=== PATIENT | female | born 2000 | race Hispanic/Latino ===

== ENCOUNTER 2024-05-29 12:18 | Emergency (ER) | payer MEDICAID, OTHER ==
[~2024-05-29] VITALS: Ht 157.5 cm; Wt 83.9 kg
[2024-05-29 12:20] VITALS: BP 145/87; PULSE 145; RESP 20
[2024-05-29 13:13] LABS: SARS-CoV-2, RNA, NAAT POSITIVE SARS CoV-2 (NEGATIVE)
== END 2024-05-29 12:37 | disposition left against medical advice (07) ==
LOC: EDH 12:18
DX: R05.9 Cough, unspecified (principal); Z53.21 Procedure and treatment not carried out due to patient leaving prior to being seen by health care provider
CPT/HCPCS: 87635

== ENCOUNTER 2025-01-22 11:04 | Emergency (ER) | payer OTHER, MEDICAID ==
[~2025-01-22] VITALS: Ht 157.5 cm; Wt 98.0 kg
--- NOTE | 2025-01-22 11:15 | NUR ---
PT WAS JUST PLACED IN ED BED 6. DONNA VINSON IS PREPPING HER IN THE ROOM WE SPEAK.
[2025-01-22] MEDS ORDERED: dexaMETHasone ORAL SUSP 1 MG/ML 30ML BTL PO STA (11:34)
[2025-01-22] MEDS: LACTATED RINGERS 1000ML 1,000 ML IV ONE (12:00)
[2025-01-22 12:19] LABS: BASOPHILS # (AUTO) 0.04 K/uL (0.00-0.20); BASOPHILS % (AUTO) 0.3 % (0.0-5.0); EOSINOPHILS # (AUTO) 0.07 K/uL (0.00-0.70); EOSINOPHILS % (AUTO) 0.6 % (0.0-8.0); HEMATOCRIT 37.4 % (36-48); IMMATURE GRANULOCYTE ABSOLUTE 0.28 K/uL (0-1); LYMPHOCYTES # (AUTO) 2.7 K/uL (1.0-4.8); LYMPHOCYTES % (AUTO) 21.3 % (21.0-51.0); MEAN CORPUSCULAR HEMOGLOBIN 32.4 pg (27.0-33.0); MEAN CORPUSCULAR VOLUME 95.4 fL (79-99); MONOCYTES # (AUTO) 0.9 K/uL (0.1-1.0); MONOCYTES % (AUTO) 7.2 % (3.0-13.0); NEUTROPHILS # (AUTO) 8.7 K/uL (1.8-7.7); NEUTROPHILS % (AUTO) 68.4 % (40.0-77.0); PLATELET COUNT (AUTO) 269 K/uL (130-400); RED BLOOD CELL COUNT(AUTO) 3.92 MIL/uL (4.00-5.50); RED CELL DISTRIBUTION WIDTH 13.2 % (11.0-15.5); WHITE BLOOD COUNT (AUTO) 12.7 K/uL (4.8-10.8)
[2025-01-22 12:30] LABS: CREATININE 0.6 mg/dL (0.5-1.0); POTASSIUM 3.6 mmol/L (3.5-5.1)
[2025-01-22 12:34] LABS: BILIRUBIN,TOTAL 0.1 mg/dL (0.2-1.0); MAGNESIUM 1.6 mg/dL (1.80-2.40); TOTAL PROTEIN, SERUM 7.2 g/dL (6.0-8.3)
[2025-01-22] MEDS: MAG/ALUM/SIMETH 30 ML UDCUP PO ONE (12:57)
[2025-01-22 13:05] LABS: INR 0.95 (0.85-1.15); PROTHROMBIN TIME 10.1 SEC (9.6-11.6)
[2025-01-22 13:06] LABS: PARTIAL THROMBOPLASTIN TIME 27.1 SEC (26.3-35.5)
--- NOTE | 2025-01-22 13:44 | EKG ---
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
[2025-01-22] MEDS: 0.9%NACL 1000ML 1,000 ML IV ONE (14:10)
[2025-01-22 14:13] VITALS: O2SAT 97
--- NOTE | 2025-01-22 14:28 | ERN ---
General Chief Complaint: Rapid Heart Rate Stated Complaint: RAPID HEART RATE Time Seen by MD: 11:07 Source: patient History of Present Illness Initial Comments PATIENT IS A 24-YEAR-OLD FEMALE COMING IN TO BE EVALUATED FOR TACHYCARDIA. PATIENT IS A AT 32 WEEKS BY DATE AND STATES HER OBGYN IS DR. PRUETT. PATIENT ALSO STATES THAT LAST NIGHT SHE HAD SOME ABDOMINAL DISCOMFORT. Allergies: Coded Allergies: No Known Drug Allergies (Unverified Allergy, Unknown, 05/29/24) Past Medical History Past Medical History: Asthma Past Surgical History: None ROS Dictation CONSTITUTIONAL: NO CHILLS, NO FEVER, NO WEAKNESS, NO DIAPHORESIS, NO MALAISE. HEAD/FACE: NO SIGNS OF TRAUMA. EENT: NO EYE PAIN, NO BLURRED VISION, NO TEARING, NO DOUBLE VISION, NO EAR PAIN, NO EAR DISCHARGE, NO NOSE PAIN, NO NASAL CONGESTION, NO THROAT PAIN, NO THROAT SWELLING, NO MOUTH PAIN. RESPIRATORY: NO COUGH, NO ORTHOPNEA, NO SOB, NO STRIDOR, NO WHEEZING. CARDIOVASCULAR: NO CHEST PAIN, NO EDEMA, NO PALPITATIONS, NO SYNCOPE. GASTROINTESTINAL/ABDOMINAL: NO ABDOMINAL PAIN, NO CONSTIPATION, NO DIARRHEA, NO NAUSEA, NO VOMITING. GENITOURINARY: NO ABNORMAL DISCHARGE, NO DYSURIA, NO FREQUENT URINATION, NO HEMATURIA. NO COMPLAINTS OF PAIN IN THE GENITALS. MUSCULOSKELETAL: NO BACK PAIN, NO GOUT, NO JOINT PAIN, NO JOINT SWELLING, NO MUSCLE PAIN, NO MUSCLE STIFFNESS, NO NECK PAIN. INTEGUMENTARY: NO CHANGE IN COLOR, NO CHANGE IN HAIR/NAILS, NO DRYNESS, NO LESION, NO LUMPS, NO RASH. NEUROLOGICAL/PSYCH: NO ANXIETY, NOT DEPRESSED, NO EMOTIONAL PROBLEM, NO HEADACH E, NO NUMBNESS, NO PRE-EXISTING DEFICIT, NO HISTORY OF SEIZURES, NO TREMORS, NO WEAKNESS. HEMATOLOGIC/LYMPHATIC: NOT ANEMIC, NO HISTORY OF BLOOD CLOTS, NO APPARENT BLEEDING, NO BRUISING, GLANDS NOT SWOLLEN. ALL SYSTEMS NEGATIVE, EXCEPT NOTED. Physical Exam Physical Exam Dictation VITAL SIGNS: REVIEWED. GENERAL APPEARANCE: ALERT, ORIENTED X3, NO ACUTE DISTRESS, OBESE. HEAD AND FACE: NON-TRAUMATIC. EYES: PERRL, PINK CONJUNCTIVAS, EYELID NO TRAUMA, ANTERIOR CHAMBER CLEAR. EARS: PINNAS INTACT AND NO SIGNS OF TRAUMA OR ERYTHEMA. EAR CANALS CLEAR AND NO DISCHARGE. TMS NO ERYTHEMA. NOSE: NO DISCHARGE, NO BLEEDING. OROPHARYNX: MOUTH NORMAL, TEETH NO CARIES, TONGUE PINK. PHARYNX CLEAR, NO ERYTHEMA. TONSILS NO EXUDATES, NO ABSCESSES NOTED. MUCOUS MEMBRANE MOIST. NECK: SUPPLE, NON-TENDER, NO THYROMEGALY, NO MASSES, NO JVD, NO BRUITS. BREAST: DEFERRED. CHEST: NO TENDERNESS, NO CREPITUS, NO PARADOXICAL MOVEMENT, NO RETRACTIONS. LUNGS: CLEAR, WELL-VENTILATED, SYMMETRIC, NO RALES, NO WHEEZING, NO RHONCHI, NO STRIDOR, GOOD BREATH SOUNDS BILATERALLY. HEART: REGULAR RATE, REGULAR RHYTHM, NO MURMUR, NO GALLOPS. VASCULAR: NO PERIPHERAL EDEMA. ABDOMEN: SOFT, POSITIVE BOWEL SOUNDS, NONDISTENDED, NO GUARDING, NONTENDER, NO REBOUND, NO MASSES NO HEPATOMEGALY, NO SPLENOMEGALY, NO SEAN'S SIGN, NO HERNIAS. RECTAL: DEFERRED. GENITAL: DEFERRED. NEUROLOGICAL: NORMAL SPEECH, GROSS MOTOR FUNCTION INTACT, GROSS SENSORY FUNCTION INTACT. MUSCULOSKELETAL: NECK NONTENDER, FULL RANGE OF MOTION, BACK NONTENDER, FULL RANGE OF MOTION. EXTREMITIES: NONTENDER, FULL RANGE OF MOTION. SKIN: COLOR PINK, DRY, NO TURGOR, NO RASH, NO LACERATIONS, NO ABRASIONS, NO CONTUSIONS. LYMPHATICS: DEFERRED. Results Laboratory and Microbiology Lab and Micro Result Laboratory Tests Test 01/22/25 12:10 01/22/25 14:12 White Blood Count 12.7 K/uL (4.8-10.8) H Red Blood Count 3.92 MIL/uL (4.00-5.50) L Hemoglobin 12.7 g/dL (12.0-16.0) Hematocrit 37.4 % (36-48) Mean Corpuscular Volume 95.4 fL (79-99) Mean Corpuscular Hemoglobin 32.4 pg (27.0-33.0) Mean Corpuscular Hemoglobin Concent 34.0 g/dL (32.0-36.0) Red Cell Distribution Width 13.2 % (11.0-15.5) Platelet Count 269 K/uL (130-400) Mean Platelet Volume 11.2 fL (7.5-10.5) H Immature Granulocyte % (Auto) 2.2 % (0-1) H Neutrophils (%) (Auto) 68.4 % (40.0-77.0) Lymphocytes (%) (Auto) 21.3 % (21.0-51.0) Monocytes (%) (Auto) 7.2 % (3.0-13.0) Eosinophils (%) (Auto) 0.6 % (0.0-8.0) Basophils (%) (Auto) 0.3 % (0.0-5.0) Neutrophils # (Auto) 8.7 K/uL (1.8-7.7) H Lymphocytes # (Auto) 2.7 K/uL (1.0-4.8) Monocytes # (Auto) 0.9 K/uL (0.1-1.0) Eosinophils # (Auto) 0.07 K/uL (0.00-0.70) Basophils # (Auto) 0.04 K/uL (0.00-0.20) Absolute Immature Granulocyte (auto 0.28 K/uL (0-1) Nucleated Red Blood Cells 0.0 % (0.0-0.19) Prothrombin Time 10.1 SEC (9.6-11.6) Prothromb Time International Ratio 0.95 (0.85-1.15) Activated Partial Thromboplast Time 27.1 SEC (26.3-35.5) Sodium Level 133 mmol/L (136-145) L Potassium Level 3.6 mmol/L (3.5-5.1) Chloride Level 99 mmol/L (101-111) L Carbon Dioxide Level 25 mmol/L (21-32) Blood Urea Nitrogen 8 mg/dL (7-18) Creatinine 0.6 mg/dL (0.5-1.0) Glomerular Filtration Rate Calc 128 mL/min (>90) Random Glucose 89 mg/dL (70-105) Total Calcium 9.1 mg/dL (8.5-10.1) Magnesium Level 1.60 mg/dL (1.80-2.40) L Total Bilirubin 0.1 mg/dL (0.2-1.0) L Aspartate Amino Transf (AST/SGOT) 14 U/L (10-37) Alanine Aminotransferase (ALT/SGPT) 17 U/L (12-78) Alkaline Phosphatase 89 U/L (50-136) Total Creatine Kinase 26 U/L (21-232) Troponin I High Sensitivity < 4 ng/L (4-50) L B-Type Natriuretic Peptide 5 pg/mL (0-100) Total Protein 7.2 g/dL (6.0-8.3) Albumin 3.0 g/dL (3.5-5.0) L Urine Color LIGHT-YELLOW (YELLOW) Urine Appearance CLEAR (CLEAR) Urine pH 6.0 (5.0-8.0) Urine Specific [place] 1.019 (1.001-1.031) Urine Protein 10 mg/dL (NEGATIVE) H Urine Glucose (UA) NEGATIVE mg/dL (NEGATIVE) Urine Ketones NEGATIVE mg/dL (NEGATIVE) Urine Occult Blood NEGATIVE (NEGATIVE) Urine Nitrate NEGATIVE (NEGATIVE) Urine Bilirubin NEGATIVE mg/dL (NEGATIVE) Urine Urobilinogen 0.2 mg/dL (0.2-1.0) Urine Leukocyte Esterase NEGATIVE Ajit/uL Urine RBC 2-5 /HPF (0-1) H Urine WBC 2-5 /HPF (0-1) H Urine Squamous Epithelial Cells RARE /HPF (0-2) Urine Bacteria RARE /HPF (None Seen) Labs Reviewed?: Yes MDM MDM: DIFFERENTIAL DIAGNOSIS: NAUSEOUSNESS , DEHYDRATION , PATIENT IS A 24-YEAR-OLD FEMALE COMING IN TO BE EVALUATED FOR RACING HEART. LABORATORY WORKUP NEGATIVE FOR ACUTE FINDINGS. PATIENT IS BE DISCHARGED IN STABLE CONDITION SHE STATES HE FEELS MUCH BETTER WITH IV HYDRATION AND MAALOX. ED Course Orders Procedure Category Date Status Time Cbc With Differential LAB 01/22/25 Complete 11:09 Prothrombin Time With LAB 01/22/25 Complete INR 11:16 B-Type Natriuretic LAB 01/22/25 Complete Peptide 11:16 12 Lead Ekg Tracing- EKG 01/22/25 Complete Technical 11:16 Lactated Ringers PHA 01/22/25 Complete 1000ml (Lactated 11:30 Magnesium LAB 01/22/25 Complete 11:16 Creatine Kinase, Total LAB 01/22/25 Complete 11:16 Troponin I High LAB 01/22/25 Complete Sensitivity 11:16 Urinalysis Profile LAB 01/22/25 Complete 11:16 Partial LAB 01/22/25 Complete Thromboplastin Time 11:16 Comprehensive LAB 01/22/25 Complete Metabolic Panel 11:16 Dexamethasone Oral PHA 01/22/25 Complete Susp 1mg/Ml (Dexameth 11:34 Mag/Alum/Simeth 30ml PHA 01/22/25 Complete (Maalox Plus 30ml) 12:30 0.9%Nacl 1000ml (Ns PHA 01/22/25 Complete 1000ml) 14:00 Current Medications Medications (Trade) Dose Ordered Sig/Amna Route PRN Reason Start Time Stop Time Status Last Admin Dose Admin Al Hydroxide/Mg Hydroxide (MAALox PLUS 30ML) 30 ml ONCE ONCE PO 01/22/25 12:30 01/22/25 12:31 DC 01/22/25 12:57 Dexamethasone (dexaMETHasone inTENSol oral susp 1mg/mL 30mL) 20 mg ONCE STAT PO 01/22/25 11:34 01/22/25 12:02 DC Lactated Ringer's 1,000 ml @ 0 mls/hr ONCE ONCE IV 01/22/25 11:30 01/22/25 11:42 DC 01/22/25 12:00 Sodium Chloride 1,000 ml @ 0 mls/hr ONCE ONCE IV 01/22/25 14:00 01/22/25 14:01 DC 01/22/25 14:10 Vital Signs Date Time Temp Pulse Resp B/P (MAP) Pulse Ox O2 Delivery O2 Flow Rate FiO2 01/22/25 14:13 98.4 95 16 133/77 97 Room Air* 0 21 01/22/25 11:49 108 18 150/78 Room Air* 0 21 01/22/25 11:07 98.2 124 18 149/93 98 Room Air DX & DISP Disposition: Discharge Departure Impression: Primary Impression: Dehydration Additional Impression: Condition: Stable Additional Instructions: FOLLOW-UP WITH PRIMARY CARE PROVIDER IN 1 TO 2 DAYS. TAKE MEDICATIONS DIRECTED HERE IN THE EMERGENCY ROOM. OKAY TO CONTINUE HOME MEDICATIONS UNLESS OTHERWISE DISCUSSED DURING YOUR VISIT IN THE EMERGENCY ROOM TODAY. RETURN TO YOUR NEAREST EMERGENCY ROOM IF SYMPTOMS WORSEN OR IF THERE IS NO IMPROVEMENT. CALL 911 IF YOU NEED IMMEDIATE ASSISTANCE. TAKE TYLENOL [id number] NEEDED AND IF NO CONTRAINDICATIONS ARE PRESENT. INCREASE ORAL HYDRATION. A WOUND CULTURE OR URINE CULTURE WAS ORDERED HERE IN THE EMERGENCY ROOM DEPARTMENT PLEASE FOLLOW-UP WITH PRIMARY CARE PROVIDER AND ADVISE THEM TO GET REPEAT PORTS FROM OUR FACILITY. IF YOU HAD ANY KYLEE WRAP/SPLINTS THAT WERE APPLIED HERE, PLEASE DO NOT REMOVE THEM UNTIL YOU SEE YOUR PRIMARY CARE OR SPECIALTY. REFERRALS: Referrals: RACHAEL CHARLES MD (PCP) Time of Disposition: 14:51 NIKOLAY DELGADO MD Jan 22, 2025 14:28
[2025-01-22 14:34] LABS: APPEARANCE,URINE CLEAR (CLEAR); BILIRUBIN,URINE NEGATIVE (NEGATIVE); COLOR,URINE LIGHT-YELLOW (YELLOW); GLUCOSE, URINE (UA) NEGATIVE (NEGATIVE); KETONES,URINE NEGATIVE (NEGATIVE); LEUKOCYTE ESTERASE ,URINE NEGATIVE Leu/uL (NEGATIVE); NITRATE,URINE NEGATIVE (NEGATIVE); OCCULT BLOOD,URINE NEGATIVE (NEGATIVE); PROTEIN,URINE 10 mg/dL (NEGATIVE); UROBILINOGEN,URINE 0.2 mg/dL (0.2-1.0)
[2025-01-22 14:35] LABS: ADD UA MICROSCOPIC YES
[2025-01-22 14:48] LABS: BACTERIA,URINE RARE /HPF (None Seen); MUCUS,URINE FEW LPF (None Seen); SQUAMOUS EPITHELIAL CELL,UR RARE /HPF (0-2)
[2025-01-22 15:24] VITALS: BP 146/75; PULSE 86; RESP 17; TEMP 98
== END 2025-01-22 15:28 | disposition home or self-care (01) ==
LOC: EDH 11:04
DX: O99.283 Endocrine, nutritional and metabolic diseases complicating pregnancy, third trimester (principal); E86.0 Dehydration; O99.513 Diseases of the respiratory system complicating pregnancy, third trimester; J45.909 Unspecified asthma, uncomplicated; Z3A.32 32 weeks gestation of pregnancy
CPT/HCPCS: 99284; 96360; 96361; 82550; 83735; 84484; 80053; 83880; 85025; 85610; 85730; 81001; 36415; 93005; J7120; J7030; J8540